=== PATIENT | female | born 1980 | race Caucasian/White ===

== ENCOUNTER 2023-06-04 18:48 | Emergency (ER) | payer SELFPAY ==
[~2023-06-04] VITALS: Ht 172.7 cm; Wt 122.5 kg
[2023-06-04] MEDS ORDERED: ONDANSETRON 4 MG TAB.RAPDIS SL ONE (19:00)
[2023-06-04] MEDS ORDERED: LORAZEPAM INJ 2 MG/ML VIAL IM ONE (19:00)
[2023-06-04] MEDS ORDERED: LORAZEPAM INJ 2 MG/ML VIAL ONE (19:19)
[2023-06-04 19:38] VITALS: BP 134/98; TEMP 98.7; O2SAT 97
== END 2023-06-04 19:43 | disposition home or self-care (01) ==
LOC: ER 18:58
DX: F41.9 Anxiety disorder, unspecified (principal); Z60.2 Problems related to living alone; Z88.1 Allergy status to other antibiotic agents
CPT/HCPCS: 99283; 96372; J2060